=== PATIENT | female | born 1965 | race Caucasian/White ===

== ENCOUNTER 2020-06-12 12:51 | Outpatient (REF) | payer MEDICAID, OTHER, SELFPAY ==
--- NOTE | ~2020-06-12 | XR_ITS ---
EXAMINATION: CR X-RAY HAND AND WRIST BILATERAL CLINICAL INFORMATION: Bilateral hand pain. COMPARISON: None TECHNIQUE: 3 views each of the bilateral hands were obtained. FINDINGS: There is no acute fracture or dislocation. The joint spaces are unremarkable. The carpal bones are normally aligned. The distal radius and ulna are intact. There is mild soft tissue swelling. XR/XR hand wrist LT IMPRESSION: Unremarkable bilateral hands.
--- NOTE | ~2020-06-12 | XR_ITS ---
EXAMINATION: CR X-RAY HAND AND WRIST BILATERAL CLINICAL INFORMATION: Bilateral hand pain. COMPARISON: None TECHNIQUE: 3 views each of the bilateral hands were obtained. FINDINGS: There is no acute fracture or dislocation. The joint spaces are unremarkable. The carpal bones are normally aligned. The distal radius and ulna are intact. There is mild soft tissue swelling. XR/XR hand wrist RT IMPRESSION: Unremarkable bilateral hands.
[2020-06-12 14:23] LABS: MANUAL DIFF FLAG NO
[2020-06-12 14:25] LABS: Basophils Absolute Auto 0.1 X10*3/uL (0.0-0.2); Basophils Percent Auto 1.2 % (0-2); Eosinophils Absolute Auto 0.2 X10*3/uL (0.0-0.4); Eosinophils Percent Auto 2.3 % (0-4); Hematocrit 41.1 % (37-47); Hemoglobin 14.1 g/dl (12.0-16.0); Imm Gran Abs Auto 0.03 X10*3/uL (0.00-0.03); Imm Gran Pct Auto 0.4 % (0.0-0.4); Lymphocytes Absolute Auto 2.8 X10*3/uL (1.2-4.9); Lymphocytes Percent Auto 39.9 % (20-40); Mean Corpuscular HGB Conc 34.3 g/dl (31.0-35.0); Mean Corpuscular Hemoglobin 31.2 pg (27.0-33.0); Mean Corpuscular Volume 90.9 fL (80-98); Mean Platelet Volume 8.9 fL (9.4-12.3); Monocytes Absolute Auto 0.5 X10*3/uL (0.1-1.2); Neutrophils Absolute Auto 3.4 X10*3/uL (2.0-8.3); Neutrophils Percent Auto 49.2 % (45-73); Platelet Count 429 X10*3/uL (160-400); Red Blood Count 4.52 X10*6/uL (4.20-5.50); White Blood Count 6.9 X10*3/uL (4.8-10.8)
[2020-06-12 14:52] LABS: Alanine Aminotransferase 18 U/L (0-31); Albumin Level 4.3 g/dL (3.5-5.0); Alkaline Phosphatase 77 U/L (39-117); Anion Gap 11 (12-20); Aspartate Amino Transferase 19 U/L (5-31); Bilirubin Total 0.4 mg/dL (0.0-1.0); Blood Urea Nitrogen 13 mg/dL (9-16); C Reactive Protein 0.48 mg/dL (< or = 0.50); Calcium 9.4 mg/dL (8.4-10.2); Carbon Dioxide 26 mmol/L (22-29); Chloride 104 mmol/L (96-108); Estimated Glomerular Filt Rate > 60; Glucose Random 90 mg/dL (60-115); Potassium 4.3 mmol/L (3.3-5.1); Rheumatoid Factor 26.1 IU/mL (<15.0); Sodium 137 mmol/L (135-145); Total Protein 7.5 g/dL (6.5-8.0)
[2020-06-12 15:01] LABS: Thyroid Stimulating Hormone 1.64 uIU/mL (0.32-4.0)
[2020-06-12 15:23] LABS: Erythrocyte Sedimentation Rate 16 MM/HR (0-20)
[2020-06-13 04:57] LABS: Lyme Abs Screen <0.90 index
[2020-06-13 12:26] LABS: Antibody to SS-A Antigen <1.0 NEG AI (<1.0 NEG); Antibody to SS-B Antigen <1.0 NEG AI (<1.0 NEG)
[2020-06-13 13:16] LABS: Cyclic Citrullinated Peptide <16 UNITS
[2020-06-13 13:42] LABS: Anti Nuclear Antibody Screen NEGATIVE (NEGATIVE)
[2020-06-16 23:47] LABS: Vitamin D 25-OH, D2 <4 ng/mL; Vitamin D 25-OH, D3 16 ng/mL; Vitamin D 25-OH, Total 16 ng/mL (30-100)
== END 2020-06-12 12:52 | disposition home or self-care (01) ==
LOC: HO.LAB 12:51
PROVIDERS: PCP Family Medicine; Visit Provider Student in an Organized Health Care Education/Training Program
DX: M25.50 Pain in unspecified joint (principal)
CPT/HCPCS: 36415; 73110; 73130; 80053; 82306; 84443; 85025; 85652; 86038; 86039; 86140; 86200; 86235; 86431; 86618; 99202

== ENCOUNTER → 2020-07-10 13:27 | Outpatient (BNVA) | payer MEDICAID, OTHER, SELFPAY | PROVIDERS: PCP Family Medicine; Visit Provider Student in an Organized Health Care Education/Training Program | DX: M25.50 Pain in unspecified joint (principal); M79.7 Fibromyalgia | CPT/HCPCS: 99212 ==

== ENCOUNTER 2020-09-03 13:45 | Outpatient (REF) | payer MEDICAID, OTHER, SELFPAY ==
--- NOTE | ~2020-09-03 | MM_ITS ---
EXAMINATION: MM DIAGNOSTIC DIGITAL BREAST TOMOSYNTHESIS, BILATERAL US DIAGNOSTIC ULTRASOUND BREAST, LEFT CLINICAL INFORMATION: Recent pain in fullness upper outer left breast following trauma within past 1-2 months. Symptoms decreasing. Due for yearly. No known family history breast cancer. The lifetime risk of breast cancer based on the Tyrer-Cuzick Model is 9%. COMPARISON: Mammography: 12/15/2018, 09/24/2017 TECHNIQUE: Digital breast tomosynthesis is performed in both the craniocaudal and mediolateral oblique views along with computer-aided detection (CAD). Synthesized 2D images are generated from the tomosynthesis. Additional bilateral 3-D spot CC views are obtained. Ultrasound left breast is targeted to the area of clinical concern upper outer quadrant. Grayscale imaging and color Doppler are performed without and with harmonics. FINDINGS: The breasts are heterogeneously dense, which may obscure small masses (ACR BI-RADS breast composition Category c). There are no significant masses, abnormal calcifications, or other abnormalities. There is no skin thickening or coarsening of the Hua's ligaments. No focal duct ectasia. Ultrasound targeted to the upper outer quadrant demonstrates 3 small cystic foci, the largest only 0.5 cm. There is also a cystic linear structure in this area measuring 0.8 cm in length by only 0.2 cm thickness. These reside 2:00 position 7 to 10 cm from nipple. None of these areas show increased or decreased through transmission of sound. No internal echogenicity. No associated peripheral or internal color flow. There is no skin thickening or edema tracking in the soft tissue planes. On clinical exam, there is some subtle discoloration of the skin in the area of symptoms. Results are discussed with the patient at time of visit, using an head of physics. Patient confirms recent trauma upper outer left breast with some ecchymosis which is decreased at today's visit. The findings on ultrasound likely corresponding to small foci fat necrosis and/or early oil cysts. There is no mammographic correlate. Management plan is for short interval six-month follow-up targeted left breast ultrasound. MM/MM tomosynthesis diagnostic BI IMPRESSION: 1. No mammographic evidence of malignancy. 2. Ultrasound shows probable benign small foci of fat necrosis in the area of recent trauma upper outer left breast. ASSESSMENT: BI-RADS 3: Probably Benign RECOMMENDATION: Targeted ultrasound left breast in 6 months. This patient's information was entered into a reminder system with a target due date for their next mammogram.
== END 2020-09-03 13:46 | disposition home or self-care (01) ==
LOC: HO.MAMMO 13:45
PROVIDERS: PCP Family Medicine; Visit Provider Family Medicine
DX: N64.4 Mastodynia (principal)
CPT/HCPCS: 76642; 77062; 77066

== ENCOUNTER 2021-03-05 12:25 | Outpatient (REF) | payer MEDICAID, OTHER, SELFPAY ==
--- NOTE | ~2021-03-05 | US_ITS ---
EXAMINATION: US DIAGNOSTIC ULTRASOUND BREAST, LEFT CLINICAL INFORMATION: Cystic region with pain upper outer quadrant of the left breast 2 o'clock position, 8 cm from the nipple. COMPARISON: 09/03/2020 and mammography dating back to 05/16/2015. TECHNIQUE: Ultrasound of the breast is performed with real-time osman scale imaging and color Doppler. FINDINGS: In the previous region of multiple cysts, there is now noted to be a 3 mm complex cyst with some mild increased distal sound enhancement and no internal vascularity. This is at the 2 o'clock position, 8 cm from the nipple. No new more suspicious ultrasound finding is identified. No edema within the soft tissue planes is noted. Recommend 6-month bilateral mammography for yearly examination with targeted ultrasound evaluation performed at that time of the left breast. Results are discussed with the patient at time of visit. US/US breast LT limited IMPRESSION: Single remaining complex cyst 2 o'clock position, 8 cm from the nipple. Bilateral mammography with targeted left breast ultrasound at time of mammography recommended. ASSESSMENT: BI-RADS 3: Probably benign. RECOMMENDATION: Diagnostic ultrasound at time of bilateral mammography in 6 months. This patient's information was entered into a reminder system with a target due date for their next mammogram.
== END 2021-03-05 12:26 | disposition home or self-care (01) ==
LOC: HO.MAMMO 12:25
PROVIDERS: Visit Provider Family Medicine
DX: N64.4 Mastodynia (principal)
CPT/HCPCS: 76642

== ENCOUNTER 2021-07-10 10:31 | Outpatient (REF) | payer MEDICAID, OTHER, SELFPAY ==
--- NOTE | ~2021-07-10 | US_ITS ---
EXAMINATION: US ABDOMEN COMPLETE CLINICAL INFORMATION: Chronic viral hepatitis B. COMPARISON: Ultrasound abdomen complete 05/24/2018 and 09/04/2011. CT abdomen and pelvis 09/16/2016. TECHNIQUE: Real-time imaging of the abdominal viscera. FINDINGS: PANCREAS: Normal. ABDOMINAL AORTA: The proximal, mid, and distal segments are normal in caliber. INFERIOR VENA CAVA: Visualized portions are normal. LIVER: The liver is normal in size. The liver contour is normal. There is increased liver echogenicity. No focal hepatic lesion. There is no intrahepatic biliary duct dilatation seen. GALLBLADDER: Normal. The gallbladder is physiologically distended without evidence of stones, sludge, polyps, wall thickening or pericholecystic fluid. COMMON BILE DUCT: Normal in caliber measuring 0.18 cm in diameter. RIGHT KIDNEY: Normal. No hydronephrosis. No renal calculi or focal parenchymal lesions. The kidney measures 9.9 cm in maximum dimension. LEFT KIDNEY: Normal. No hydronephrosis. No renal calculi or focal parenchymal lesions. The kidney measures 10.3 cm in maximum dimension. SPLEEN: Normal. The spleen measures 8.1 cm in maximum dimension. FREE FLUID: None. US/US abdomen complete IMPRESSION: Hepatic steatosis. No focal lesion seen. The rest of the abdominal ultrasound is unremarkable.
== END 2021-07-10 10:32 | disposition home or self-care (01) ==
LOC: HO.US 10:31
PROVIDERS: PCP Family Medicine; Visit Provider Family Medicine
DX: B18.1 Chronic viral hepatitis B without delta-agent (principal)
CPT/HCPCS: 76700

== ENCOUNTER 2021-09-24 10:30 | Outpatient (REF) | payer MEDICAID, OTHER, SELFPAY ==
--- NOTE | ~2021-09-24 | US_ITS ---
EXAMINATION: US DIAGNOSTIC ULTRASOUND BREAST, LEFT CLINICAL INFORMATION: Six-month follow-up complex cystic region left breast. COMPARISON: July 10, 2021 and studies dating back to April 12, 2014. TECHNIQUE: Ultrasound of the breast is performed with real-time osman scale imaging and color Doppler. FINDINGS: Targeted left breast ultrasound to the lateral aspect was then performed. No suspicious ultrasound findings identified. There is a 2 x 1 mm cyst seen at the 3:00 position 3 cm from the nipple. The previously noted cystic regions about the 2:00 position 8 cm from nipple are not identified and most likely representing findings of fat necrosis and cyst with no persistent suspicious findings. Results are discussed with the patient at time of visit. US/US breast LT limited IMPRESSION: No mammographic or ultrasound evidence of malignancy. ASSESSMENT: BI-RADS 2: Benign RECOMMENDATION: Routine annual mammography screening.
--- NOTE | ~2021-09-24 | MM_ITS ---
EXAMINATION: MM DIAGNOSTIC DIGITAL MAMMOGRAPHY, BILATERAL US TARGETED BREAST, LEFT CLINICAL INFORMATION: Six-month follow up left breast cystic area with pain. The lifetime risk of breast cancer based on the Tyrer-Cuzick Model is 9.2%. COMPARISON: Mammography: 06/30/2021 and studies dating back to 04/12/2014. TECHNIQUE: Digital mammography is performed in craniocaudal and mediolateral oblique views along with computer-aided detection (CAD). Additional right breast spot compression views in craniocaudal and 90-degree mediolateral views performed. Targeted left breast ultrasound. FINDINGS: The breasts are heterogeneously dense, which may obscure small masses (ACR BI-RADS breast composition Category c). A question of 2 regions of asymmetric density with irregular borders within the anterior aspect of the right breast which compressed out on spot compression views. No new left breast abnormal findings appreciated. Targeted left breast ultrasound to the lateral aspect was then performed. No suspicious ultrasound findings identified. There is a 2 x 1 mm cyst seen at the 3:00 position, 3 cm from the nipple. The previously noted cystic regions about the 2:00 position, 8 cm from nipple, are not identified and most likely represented findings of fat necrosis and cysts with no persistent suspicious findings. Results are discussed with the patient at time of visit. MM/MM diagnostic mammo BI IMPRESSION: No mammographic or ultrasound evidence of malignancy. ASSESSMENT: BI-RADS 2: Benign RECOMMENDATION: Routine annual mammography screening. This patient's information was entered into a reminder system with a target due date for their next mammogram.
== END 2021-09-24 10:31 | disposition home or self-care (01) ==
LOC: HO.MAMMO 10:30
PROVIDERS: PCP Family Medicine; Visit Provider Family Medicine
DX: N64.4 Mastodynia (principal)
CPT/HCPCS: 76642; 77062; 77066

== ENCOUNTER 2022-08-31 11:39 | Outpatient (REF) | payer MEDICAID, OTHER, SELFPAY ==
--- NOTE | ~2022-08-31 | XR_ITS ---
EXAMINATION: XR SHOULDER , LEFT CLINICAL INFORMATION: Pain COMPARISON: None available at the time of this dictation. TECHNIQUE: AP external rotation, Grashey, scapular Y, and axillary views of the shoulder. FINDINGS: BONES: There is no fracture or dislocation, no osteolytic or osteoblastic lesion. JOINTS: Glenohumeral joint is properly positioned. Adjacent AC joint is unremarkable. SOFT TISSUE AND INCLUDED LUNG: Soft tissue calcification superior to the humeral head suggests possible calcific tendinitis. XR/XR shoulder LT min 2V IMPRESSION: * Soft tissue calcification superior to the humeral head suggests possible calcific tendinitis. * No fracture or dislocation.
== END 2022-08-31 11:40 | disposition home or self-care (01) ==
LOC: HO.HHCX 11:39
PROVIDERS: PCP Family Medicine; Referring Provider Family Medicine; Visit Provider Family Medicine
DX: M25.512 Pain in left shoulder (principal)
CPT/HCPCS: 73030

== ENCOUNTER 2022-12-10 11:55 | Outpatient (REF) | payer OTHER, SELFPAY ==
[2022-12-10 13:23] LABS: MANUAL DIFF FLAG NO
[2022-12-10 13:49] LABS: Basophils Percent Auto 0.6 % (0-2); Eosinophils Absolute Auto 0.1 X10*3/uL (0.0-0.4); Eosinophils Percent Auto 2.2 % (0-4); Hematocrit 38.1 % (37.0-47.0); Hemoglobin 13.2 g/dl (12.0-16.0); Imm Gran Abs Auto 0.01 X10*3/uL (0.00-0.03); Imm Gran Pct Auto 0.2 % (0.0-0.4); Lymphocytes Absolute Auto 2.3 X10*3/uL (1.2-4.9); Lymphocytes Percent Auto 44.9 % (20-40); Mean Corpuscular HGB Conc 34.6 g/dl (31.0-35.0); Mean Corpuscular Hemoglobin 31.4 pg (27.0-33.0); Mean Corpuscular Volume 90.5 fL (80.0-98.0); Mean Platelet Volume 8.8 fL (9.4-12.3); Monocytes Absolute Auto 0.5 X10*3/uL (0.1-1.2); Monocytes Percent Auto 8.9 % (2-11); Neutrophils Absolute Auto 2.2 x10*3/uL (2.0-8.3); Neutrophils Percent Auto 43.2 % (45-73); Platelet Count 358 X10*3/uL (160-400); Red Blood Count 4.21 X10*6/uL (4.20-5.50); Red Cell Distribution Width 13.2 % (11.0-16.0); White Blood Count 5.1 X10*3/uL (4.8-10.8)
[2022-12-10 13:52] LABS: Estimated Average Glucose 114 mg/dL; Hemoglobin A1c % 5.6 %
[2022-12-10 14:27] LABS: Cholesterol 296 mg/dL; HDL Cholesterol 51 mg/dL; LDL Cholesterol Calculated 214 mg/dl; Triglycerides 155 mg/dL
[2022-12-10 14:30] LABS: Alanine Aminotransferase 13 U/L (0-31); Alkaline Phosphatase 71 U/L (39-117); Anion Gap 10 (12-20); Aspartate Amino Transferase 16 U/L (5-31); Bilirubin Total 0.5 mg/dL (0.0-1.0); Blood Urea Nitrogen 12 mg/dL (9-16); Calcium 9.3 mg/dL (8.4-10.2); Carbon Dioxide 27 mmol/L (22-29); Chloride 108 mmol/L (96-108); Estimated Glomerular Filt Rate > 60; Glucose Random 84 mg/dL (60-115); Potassium 3.7 mmol/L (3.3-5.1); Sodium 141 mmol/L (135-145); Total Protein 7.2 g/dL (6.5-8.0)
[2022-12-10 14:51] LABS: TSH reflex Free T4 1.18 uIU/mL (0.32-4.0)
[2022-12-10 15:02] LABS: Reflex LDLD? No
[2022-12-10 15:04] LABS: Folate 14.8 ng/mL (> or = 4.0); Vitamin B12 1560 pg/mL (200-900)
[2022-12-11 04:23] LABS: Hepatitis A Antibody IgG REACTIVE (Nonreactive)
[2022-12-11 04:35] LABS: ~HepC Num1 0.09 S/CO (0.00-0.79); ~Hepatitis C Antibody Nonreactive (Nonreactive)
[2022-12-11 22:32] LABS: Hepatitis BE Antigen NON-REACTIVE (NON-REACTIVE)
[2022-12-15 09:33] LABS: Hepatitis B Viral DNA Qn - cp 4.09 Log IU/mL (NOT DETECTED); Hepatitis B Viral DNA Qn-IU/mL 12300 IU/mL (NOT DETECTED)
== END 2022-12-10 11:56 | disposition home or self-care (01) ==
LOC: HO.HHCL 11:55
PROVIDERS: Visit Provider Family Medicine
DX: E78.2 Mixed hyperlipidemia (principal); R73.03 Prediabetes; D51.0 Vitamin B12 deficiency anemia due to intrinsic factor deficiency; B18.1 Chronic viral hepatitis B without delta-agent
CPT/HCPCS: 36415; 80053; 80061; 82607; 82746; 83036; 84443; 85025; 86708; 86803; 87350; 87517

== ENCOUNTER → 2023-01-04 13:00 | Outpatient (BNV) | payer SELFPAY | PROVIDERS: PCP Family Medicine; Visit Provider Radiology Diagnostic Radiology | DX: N64.4 Mastodynia (principal) | CPT/HCPCS: 76642; 77062; 77066 ==

== ENCOUNTER 2023-01-04 13:25 | Outpatient (REF) | payer OTHER, SELFPAY ==
--- NOTE | ~2023-01-04 | US_ITS ---
EXAMINATION: MM DIAGNOSTIC DIGITAL BREAST TOMOSYNTHESIS, BILATERAL US BREAST LIMITED, BILATERAL MAMMOGRAPHY: CLINICAL INFORMATION: 57-year-old female complaining of bilateral upper outer breast pain. COMPARISON: Mammography: 09/24/2021, 09/03/2020, 09/24/2017, and dating back to 2013. TECHNIQUE: Digital breast tomosynthesis is performed in both the craniocaudal and mediolateral oblique views along with computer-aided detection (CAD). Synthesized 2D images are generated from the tomosynthesis. FINDINGS: There are scattered areas of fibroglandular density (ACR BI-RADS breast composition Category b). There are no suspicious masses, suspicious grouped calcifications, or areas of architectural distortion. The parenchymal pattern is stable from prior exams. There are no mammographic correlates to the regions of breast pain bilaterally in the upper outer quadrants. ULTRASOUND: CLINICAL INFORMATION: 57-year-old female complaining of bilateral upper outer breast pain. COMPARISON: 03/05/2021, 09/03/2020. TECHNIQUE: Targeted sonographic evaluation was performed using a high frequency linear transducer. Attention was given to the purported regions of bilateral breast pain as indicated by the patient in the bilateral upper outer quadrants. Selected archived documentation. FINDINGS: RIGHT BREAST: There is a mixture of fatty and fibroglandular tissue. No suspicious mass is seen. There is no pathologic acoustic shadowing. There are no cystic changes. There is no correlate to the region of breast pain. LEFT BREAST:There is a mixture of fatty and fibroglandular tissue. No suspicious mass is seen. There is no pathologic acoustic shadowing. There are no cystic changes. There is no correlate to the region of breast pain. US/US breast RT limited mamm only IMPRESSION: There are no findings suspicious for malignancy. There is no mammographic or sonographic correlate to the complaint of breast pain in the upper outer quadrants of both breasts. Recommend clinical management of the patient's symptomatology. Otherwise, recommend the patient resume annual screening mammography. OVERALL ASSESSMENT: Mammography: BI-RADS 1 - Negative Ultrasound: BI-RADS 1 - Negative RECOMMENDATION: 1 year F/U Results were provided to the patient at time of visit by the technologist. This patient's information was entered into a reminder system with a target due date for their next mammogram.
== END 2023-01-04 13:26 | disposition home or self-care (01) ==
LOC: HO.MAMMO 13:25
PROVIDERS: PCP Family Medicine; Visit Provider Family Medicine
DX: N64.4 Mastodynia (principal)
CPT/HCPCS: 76642; 77062; 77066

== ENCOUNTER 2023-04-27 09:43 | Outpatient (REF) | payer OTHER, SELFPAY ==
--- NOTE | ~2023-04-27 | US_ITS ---
EXAMINATION: US ABDOMEN COMPLETE CLINICAL INFORMATION: Hepatitis B. Normal ALT, AST and alkaline phosphatase. Evaluate for cirrhosis. COMPARISON: Ultrasound abdomen complete 07/10/2021 and 05/24/2018. CT abdomen and pelvis 09/16/2016. TECHNIQUE: Real-time imaging of the abdominal viscera. Limited visualization due to bowel gas. FINDINGS: PANCREAS: Limited visualization of pancreatic tail and head. Imaged portion of pancreatic body is unremarkable. ABDOMINAL AORTA: Atherosclerosis in the [id number] abdominal aorta. INFERIOR VENA CAVA: Visualized portions are normal. LIVER: Increased hepatic parenchymal heterogeneity and echogenicity could be associated with hepatocellular disease/hepatic steatosis and substantially limits visualization. Correlation with liver function tests and clinical exam recommended to determine further management. GALLBLADDER: No gallstones. Borderline gallbladder wall thickening of 0.3 cm. COMMON BILE DUCT: Normal in caliber measuring 0.3 cm in diameter. RIGHT KIDNEY: No hydronephrosis. No renal calculi. Limited visualization. The kidney measures 9.8 cm in maximum dimension. LEFT KIDNEY: No hydronephrosis. No renal calculi. Limited visualization. The kidney measures 9.8 cm in maximum dimension. SPLEEN: Limited visualization. The spleen measures 8.2 cm in maximum dimension. FREE FLUID: None. US/US abdomen complete IMPRESSION: Increased hepatic parenchymal heterogeneity and echogenicity could be associated with hepatocellular disease/hepatic steatosis and substantially limits visualization. Correlation with liver function tests and clinical exam recommended to determine further management.
== END 2023-04-27 09:44 | disposition home or self-care (01) ==
LOC: HO.US 09:43
PROVIDERS: PCP Family Medicine; Visit Provider Family Medicine
DX: B18.1 Chronic viral hepatitis B without delta-agent (principal)
CPT/HCPCS: 76700

== ENCOUNTER 2023-06-29 11:27 | Outpatient (REF) | payer MEDICAID, SELFPAY ==
[2023-07-01 19:34] LABS: TS Negative Control Passed; TS Panel A 1; TS Panel B 5; TS Positive Control Passed; TSpotTB Borderline (Negative)
== END 2023-06-29 11:28 | disposition home or self-care (01) ==
LOC: HO.HHCL 11:27
PROVIDERS: Visit Provider Family Medicine
DX: Z11.1 Encounter for screening for respiratory tuberculosis (principal)
CPT/HCPCS: 36415; 86481

== ENCOUNTER 2023-08-18 10:57 | Outpatient (REF) | payer OTHER, SELFPAY ==
[2023-08-18 13:34] LABS: MANUAL DIFF FLAG NO
[2023-08-18 13:57] LABS: Basophils Percent Auto 0.8 % (0-2); Eosinophils Absolute Auto 0.1 X10*3/uL (0.0-0.4); Eosinophils Percent Auto 1.8 % (0-4); Hematocrit 39.6 % (37.0-47.0); Hemoglobin 13.5 g/dl (12.0-16.0); Imm Gran Abs Auto 0.01 X10*3/uL (0.00-0.03); Imm Gran Pct Auto 0.2 % (0.0-0.4); Lymphocytes Absolute Auto 2.1 X10*3/uL (1.2-4.9); Lymphocytes Percent Auto 42.5 % (20-40); Mean Corpuscular HGB Conc 34.1 g/dl (31.0-35.0); Mean Corpuscular Hemoglobin 30.8 pg (27.0-33.0); Mean Corpuscular Volume 90.4 fL (80.0-98.0); Mean Platelet Volume 9.1 fL (9.4-12.3); Monocytes Absolute Auto 0.5 X10*3/uL (0.1-1.2); Monocytes Percent Auto 9.4 % (2-11); Neutrophils Absolute Auto 2.2 x10*3/uL (2.0-8.3); Neutrophils Percent Auto 45.3 % (45-73); Platelet Count 372 X10*3/uL (160-400); Red Blood Count 4.38 X10*6/uL (4.20-5.50); Red Cell Distribution Width 13.4 % (11.0-16.0); White Blood Count 4.9 X10*3/uL (4.8-10.8)
[2023-08-18 14:06] LABS: Estimated Average Glucose 123 mg/dL; Hemoglobin A1c % 5.9 % (<6.0)
[2023-08-18 14:23] LABS: Alanine Aminotransferase 18 U/L (0-31); Alkaline Phosphatase 75 U/L (39-117); Anion Gap 10 (12-20); Aspartate Amino Transferase 19 U/L (5-31); Bilirubin Total 0.3 mg/dL (0.0-1.0); Blood Urea Nitrogen 17 mg/dL (9-16); Calcium 9.4 mg/dL (8.4-10.2); Carbon Dioxide 26 mmol/L (22-29); Chloride 107 mmol/L (96-108); Cholesterol 266 mg/dL (<200); Estimated Glomerular Filt Rate > 60; Glucose Random 92 mg/dL (60-115); HDL Cholesterol 52 mg/dL (>40); LDL Cholesterol Calculated 191 mg/dL (<100); Potassium 3.9 mmol/L (3.3-5.1); Sodium 139 mmol/L (135-145); Total Protein 7.4 g/dL (6.5-8.0); Triglycerides 118 mg/dL (<150); Vitamin D 25-OH Total 68.9 ng/mL (>30)
[2023-08-18 14:29] LABS: Reflex LDLD? No
[2023-08-18 14:32] LABS: Folate 8.7 ng/mL (> or = 4.0); Vitamin B12 1416 pg/mL (200-900)
[2023-08-20 12:24] LABS: Hepatitis B Viral DNA Qn - cp 3.41 Log IU/mL (NOT DETECTED); Hepatitis B Viral DNA Qn-IU/mL 2600 IU/mL (NOT DETECTED)
[2023-08-20 22:13] LABS: Hepatitis BE Antigen NON-REACTIVE (NON-REACTIVE)
[2023-08-21 09:53] LABS: TS Negative Control Passed; TS Panel A 0; TS Panel B 1; TS Positive Control Passed; TSpotTB Negative (Negative)
== END 2023-08-18 10:58 | disposition home or self-care (01) ==
LOC: HO.HHCL 10:57
PROVIDERS: Visit Provider Family Medicine
DX: Z11.1 Encounter for screening for respiratory tuberculosis (principal); B18.1 Chronic viral hepatitis B without delta-agent; E55.9 Vitamin D deficiency, unspecified; E78.2 Mixed hyperlipidemia; E78.1 Pure hyperglyceridemia; D51.0 Vitamin B12 deficiency anemia due to intrinsic factor deficiency; R73.03 Prediabetes; D47.3 Essential (hemorrhagic) thrombocythemia
CPT/HCPCS: 36415; 80053; 80061; 82306; 82607; 82746; 83036; 85025; 86481; 87350; 87517